=== PATIENT | male | born 1985 | race Caucasian/White ===

== ENCOUNTER 2018-05-16 18:22 | Emergency (ER) | payer OTHER ==
[~2018-05-16] VITALS: Ht 185.4 cm; Wt 88.6 kg
[~2018-05-16 18:22] MED LIST: DOXYCYCLINE 10100 MG PO; PERCOCET 325 MG1 TA2 PO; VALTREX1 GM PO; ZOLOFT 100MG100 MG PO
[2018-05-16 18:32] VITALS: BP 147/94; TEMP 98
[2018-05-16] MEDS ORDERED: CYMBALTA 60MG60 MG PO (18:44)
[2018-05-16 20:12] VITALS: PULSE 92
== END 2018-05-16 20:13 | disposition home or self-care (01) ==
LOC: COL.ER 18:22
DX: S06.0X0A Concussion without loss of consciousness, initial encounter (principal); F32.9 Major depressive disorder, single episode, unspecified; F17.210 Nicotine dependence, cigarettes, uncomplicated; W22.8XXA Striking against or struck by other objects, initial encounter; Y92.410 Unspecified street and highway as the place of occurrence of the external cause

== ENCOUNTER → 2018-11-08 | Outpatient (CLI) | payer OTHER ==
[~2018-11-08] MED LIST changes: +CYMBALTA 60MG60 MG PO
--- NOTE | 2018-11-08 12:50 | NUR ---
nurse called to fluoroscopy to check on pt. Pt reports feeling short of breath and not feeling well. VS 74 20 109/72 98% on RA. Pt starting to feel better. States he is not sure what happened pt placed in trendelenburg by staff. 1252 Pt report feeling a lot better pt to sitting position. color pink. 1253 repeat VS 74 20 133/96 98%. Pt up and into wheelchair denies complaints at this time. Pt to MRI per wheelchair with staff.[email or web address]
== END ==
LOC: COL.RAD 12:24
DX: M25.512 Pain in left shoulder (principal)
CPT/HCPCS: A9585; Q9967

== ENCOUNTER 2020-08-19 02:35 | Emergency (ER) | payer OTHER ==
[~2020-08-19] VITALS: Ht 185.4 cm; Wt 90.9 kg
[2020-08-19 03:06] LABS: STREP SCREEN NEGATIVE
[2020-08-19] MEDS ORDERED: ZITHROMAX 250M250 MG PO (03:21)
[2020-08-19 03:55] VITALS: BP 156/98; PULSE 75; TEMP 98.2
== END 2020-08-19 03:55 | disposition home or self-care (01) ==
LOC: COL.ER 02:35
PROVIDERS: Emergency Medicine
DX: R59.0 Localized enlarged lymph nodes (principal); F17.210 Nicotine dependence, cigarettes, uncomplicated
CPT/HCPCS: J1100